=== PATIENT | female | born 1980 | race American Indian/Alaskan Native ===

== ENCOUNTER 2020-07-04 20:07 | Emergency (ER) | payer SELFPAY ==
[2020-07-04 22:10] LABS: Basophils # (Auto) 0.1 K/mm3 (0.0-0.1); Basophils % (Auto) 2.9 % (0.0-1.8); Eosinophils # (Auto) 0.1 K/mm3 (0.0-0.4); Eosinophils % (Auto) 1.4 % (0.0-4.3); Hematocrit 32.4 % (30.3-42.9); Hemoglobin 10.8 gm/dl (10.1-14.3); Lymphocytes # (Auto) 2.2 K/mm3 (1.2-5.4); Lymphocytes % (Auto) 44.2 % (13.4-35.0); Mean Corpuscular HGB Conc 33 % (30-34); Mean Corpuscular Volume 93 fl (79-97); Monocytes # (Auto) 0.5 K/mm3 (0.0-0.8); Monocytes % (Auto) 9.6 % (0.0-7.3); Platelet Count 124 K/mm3 (140-440); Red Blood Count 3.49 M/mm3 (3.65-5.03); Red Cell Distribution Width 16.7 % (13.2-15.2)
[2020-07-04] MEDS ORDERED: LORazepam 2 MG/ML VIAL IV PRN ×2 (22:10)
[2020-07-04] MEDS ORDERED: THIAMINE 100 MG, FOLIC ACID 1 MG, MULTIPLE VITAMIN INJ, ADULT 10 ML in SODIUM CHLORIDE ... IV ONE (22:11)
[2020-07-04] MEDS ORDERED: ONDANSETRON 4 MG/2 ML INJ IV ONE (22:12)
--- NOTE | 2020-07-04 22:14 | Emergency Department Report ---
HPI - General Chief Complaint: Alcohol Time Seen by Provider: 07/04/20 21:59 - HPI HPI: This is a 39-year-old female who presents to the emergency department with a complaint of alcohol withdrawal symptoms that include bilateral upper extremity tremor, feeling anxious, and some nausea without vomiting. The patient does have a history of alcohol abuse and dependence and a previous history of alcohol withdrawal seizures. Patient says that she was sober for about 3 weeks and then went on a 3-day drinking binge that ended this afternoon. She has a past medical history of cirrhosis of the liver, pancreatitis, esophageal varices. The patient has a previous cholecystectomy and has had a TIPS procedure. The patient says that she has an appointment with her drapery seamstress tomorrow to evaluate her liver and her esophageal varices and "that is why I need to get sober." Patient also admits to smoking crack cocaine today. Patient says that she has some mild upper abdominal pain. She denies any fever, chest pain, shortness of breath, vaginal bleeding or discharge, dysuria. ED Past Medical Hx - Past Medical History Previous Medical History?: Yes Additional medical history: cirrosis. varices esphogus. pancreatitis. - Surgical History Past Surgical History?: Yes Hx Cholecystectomy: Yes Additional Surgical History: TIPS - Social History Smoking Status: Never Smoker Substance Use Type: Alcohol, Other - Medications Home Medications: Home Medications Medication Instructions Recorded Confirmed Last Taken Type chlordiazePOXIDE [Librium] 25 mg PO Q8H PRN #10 capsule 07/05/20 Unknown Rx ED Review of Systems ROS: Stated complaint: WITHDRAWLS Other details as noted in HPI Comment: All other systems reviewed and negative Constitutional: denies: chills, fever Eyes: denies: eye pain, vision change ENT: denies: ear pain, throat pain Respiratory: denies: cough, shortness of breath Cardiovascular: denies: chest pain, palpitations Gastrointestinal: abdominal pain, nausea. denies: vomiting Genitourinary: denies: dysuria, discharge Musculoskeletal: denies: back pain, arthralgia Skin: denies: rash, lesions Neurological: other (tremors). denies: headache Psychiatric: anxiety Physical Exam - Physical Exam Vital Signs: Vital Signs 07/04/20 21:17 Temperature 98.2 F Pulse Rate 75 Respiratory 16 Rate Blood Pressure 127/74 O2 Sat by Pulse 99 Oximetry Physical Exam: GENERAL: The patient is well-developed well-nourished. HENT: Normocephalic. Atraumatic. Patient has moist mucous membranes. EYES: Extraocular motions are intact. NECK: Supple. Trachea is midline. CHEST/LUNGS: Clear to auscultation. There is no respiratory distress noted. HEART/CARDIOVASCULAR: Regular. There is no tachycardia. There is no murmur. ABDOMEN: Abdomen is soft. Mild generalized abdominal tenderness to palpation. No guarding. Patient has normal bowel sounds. There is no abdominal distention. SKIN: Skin is warm and dry. NEURO: The patient is awake, alert, and oriented. The patient is cooperative. The patient has no focal neurologic deficits. Normal speech. MUSCULOSKELETAL: There is no tenderness or deformity. There is no limitation range of motion. Bilateral upper extremity tremor. ED Course Vital Signs 07/04/20 21:17 Temperature 98.2 F Pulse Rate 75 Respiratory 16 Rate Blood Pressure 127/74 O2 Sat by Pulse 99 Oximetry ED Medical Decision Making - Lab Data Result diagrams: 07/04/20 21:43 07/04/20 21:43 - Radiology Data Radiology results: image reviewed interpreted by me: Abdominal x-ray shows nonspecific nonobstructive bowel gas. No free air. - Medical Decision Making This patient presents to the emergency department with a complaint of alcohol withdrawal as she has some nausea without vomiting, some mild anxiety, and bilateral upper extremity tremor. Patient is on a 3-day drinking binge that ended this afternoon. The patient hopes to get sober and overcome this withdrawal so she can follow-up with her drapery seamstress tomorrow regarding her previous history of cirrhosis and esophageal varices. The patient was placed on the alcohol withdrawal protocol and had a very low CIWA score of 8 for which she was given a dose of Ativan. She was also given some IV fluid resuscitation with a banana bag. EKG does not show any morphology consistent with ST elevation myocardial infarction or any dysrhythmia. Patient's labs shows a blood alcohol level of 0.24 and a urine drug screen positive for cocaine. The patient does admit to some recent cocaine use. Patient has been reevaluated multiple times over multiple hours thus far. She has been in the emergency department for almost 6 hours thus far. At this time she does not appear to require admission or any emergent intervention. The patient will remain in the emergency department until someone can come and take responsibility for her, or she is sober. The patient has been signed out to my colleague, Dr Loomis, to continue to monitor the patient and assist with disposition. Critical Care Time: No Critical care attestation.: If time is entered above; I have spent that time in minutes in the direct care of this critically ill patient, excluding procedure time. ED Disposition Clinical Impression: Alcohol abuse, Cocaine use Alcohol dependence Qualifiers: Substance use status: unspecified alcohol-induced disorder Qualified Code(s): F10.29 - Alcohol dependence with unspecified alcohol-induced disorder Alcohol withdrawal Qualifiers: Complication of substance-induced condition: with unspecified complication Qualified Code(s): F10.239 - Alcohol dependence with withdrawal, unspecified Disposition: DC-01 TO HOME OR SELFCARE Is pt being admited?: No Condition: Stable Instructions: Alcohol Withdrawal Syndrome, Stimulant Use Disorder-Cocaine, Alcohol Abuse and Dependence Information, Adult Additional Instructions: Please follow-up with a primary care physician in the next few days. Please follow-up with your drapery seamstress as previously scheduled. I will give you some outpatient resources for rehabilitation/detox. I am giving you a prescription of Librium to assist you with alcohol withdrawal. If you choose not to remain sober, and start drinking alcohol again, please immediately stop taking the Librium as the 2 combined can cause respiratory depression. You have been prescribed a medication that is sedating and therefore should not be taken prior to driving, working, and responsible for children and in no way should be mixed with alcohol of any quantity. Return to the emergency department with any worsening of your symptoms, new or concerning symptoms not addressed during this current emergency department visit, or with any acute distress. Prescriptions: chlordiazePOXIDE [Librium] 25 mg PO Q8H PRN #10 capsule PRN Reason: Alcohol Withdrawal Referrals: PRIMARY CARE, [Primary Care Provider] - 2-3 Days Mechanical Car Checker, Umberto [Other] - 07/05/20 Time of Disposition: 02:09
[2020-07-04 22:30] LABS: Alanine Aminotransferase 30 units/L (7-56); BUN/Creatinine Ratio 13; Blood Urea Nitrogen 8 mg/dL (7-17); Calcium 7.7 mg/dL (8.4-10.2); Hemolysis Index 1
--- NOTE | 2020-07-04 22:35 | XRay Report ---
ABDOMEN 2 VIEW(S) INDICATION / CLINICAL INFORMATION: Abd pain. COMPARISON: None available. FINDINGS: TUBES / LINES: TIPS is noted. There are coils in the midline upper abdomen. BOWEL GAS PATTERN: No significant abnormality. FREE AIR / EXTRALUMINAL GAS: None seen. ADDITIONAL FINDINGS: No significant additional findings. IMPRESSION: 1. No radiographic evidence of acute abdomen. Signer Name: Killian Collins MD Signed: 07/04/2020 10:30 PM Workstation Name: [id number]
[2020-07-04 23:14] LABS: Bilirubin,Urine NEG (Negative); Blood,Urine NEG (Negative); Color,Urine Yellow (Yellow); Protein,Urine <15 mg/dL mg/dL (Negative); RBC,Urine < 1.0 /HPF (0.0-6.0); WBC,Urine < 1.0 /HPF (0.0-6.0)
[2020-07-04 23:22] LABS: Amphetamine Screen,Urine PRESUMPTIVE NEGATIVE; Benzodiazepines Screen,Urine PRESUMPTIVE NEGATIVE; Cannabinoid Screen,Urine PRESUMPTIVE NEGATIVE; Cocaine Screen,Urine PRESUMPTIVE POSITIVE; Methadone Screen,Urine PRESUMPTIVE NEGATIVE; Opiate Screen,Urine PRESUMPTIVE NEGATIVE
[2020-07-05 07:49] VITALS: BP 117/67
--- NOTE | 2020-07-06 11:35 | Electrocardiograph Report ---
[facility] Test Date: 2020-07-05 Test Time: 02:10:21 Pat Name: ISIAH CASILLAS Department: Room: Gender: F Restaurant Server: BRIE : 1980 Requested By: JOANN PITTMAN Order Number: [id number] Reading MD: Nishant David Measurements Intervals [place] Rate: 81 P: 22 [place]: 155 QRS: 52 QRSD: 88 T: 43 QT: 405 QTc: 470 Interpretive Statements Sinus rhythm No previous ECG available for comparison Electronically Signed On 07-06-2020 11:35:13 EDT by Nishant David
== END 2020-07-05 07:51 | disposition home or self-care (01) ==
LOC: ED 20:07
DX: F10.139 Alcohol abuse with withdrawal, unspecified (principal); F14.90 Cocaine use, unspecified, uncomplicated; Z90.49 Acquired absence of other specified parts of digestive tract; Z79.899 Other long term (current) drug therapy
CPT/HCPCS: 36415; 74019; 80053; 80307; 81001; 83690; 83735; 84703; 85025; 93005; 96365; 96366; 96375; 99284; J2060; J2405; J3411; J7030; 80320; G0480